=== PATIENT | male | born 1990 | race Caucasian/White ===

== ENCOUNTER 2019-10-06 12:35 | Outpatient (CLI) | payer OTHER ==
--- NOTE | 2019-10-06 15:02 | CT ---
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 The patient had two separate surgeries to the right shoulder. COMPARISON: None available. TECHNIQUE: Multiple CT images were obtained of the right shoulder. Three-dimensional reconstructed images were c onstructed on a separate 3D work station. FINDINGS: There is mild secondary osteoarthritic change involving the glenohumeral joint with areas of subchond ral cyst like abnormality as well as prior screw hole fixation involving the posterior and anterior-i nferior glenoid. There is a 7.7 mm ossific fragment seen along the posterior-inferior glenoid rim, li estefany reflecting sequela of a small un-united fracture in this location. There is mild impaction defor mity involving the posterior-inferior glenoid surface, best seen on image 41 of series 2. This can po tentially also be seen with mild dysplasia of the glenoid. No acute fracture is evident. Small margin al osteophytes are seen off the humeral head. The AC joint appears within normal limits. No overt mus cular atrophy is evident involving the rotator cuff musculature or the surrounding shoulder muscular girdle. No enlarged lymph nodes are evident. The visualized right lung is clear. IMPRESSION: Posttraumatic and post surgical deformity involving the glenohumeral joint with mild secondary osteoa rthritic change of the glenohumeral joint. POS: [facility]
== END 2019-10-06 12:36 | disposition home or self-care (01) ==
LOC: BICCT 12:35
PROVIDERS: ATTEND Internal Medicine
DX: S43.001D Unspecified subluxation of right shoulder joint, subsequent encounter (principal); M19.011 Primary osteoarthritis, right shoulder; M21.821 Other specified acquired deformities of right upper arm